=== PATIENT | female | born 1990 | race African-American/Black ===

== ENCOUNTER → 2018-09-26 | Outpatient (CLI) | payer MEDICAID ==
[~2018-09-26] MED LIST: ALBUTEROL SULF 2.5 MG/0.5ML(0.5%) NEB SOLN ONE
== END | disposition home or self-care (01) ==
LOC: RT 08:19
PROVIDERS: ATTEND Internal Medicine Pulmonary Disease
DX: J44.9 Chronic obstructive pulmonary disease, unspecified (principal)
CPT/HCPCS: 94060; J7611